=== PATIENT | female | born 1940 | race Caucasian/White ===

== ENCOUNTER 2017-05-05 09:40 | Outpatient (CLI) | payer OTHER ==
[~2017-05-05 09:40] MED LIST: ASA81 MG; CATAFLAM50 MG PO; IBUPROFEN800 MG; LYRICA50 MG; NORVASC5 MG; ORPH100T PO; TRAZODONE HCL50 MG; VASOTEC10 MG
== END 2017-05-05 09:42 | disposition home or self-care (01) ==
LOC: NUCLEAR 09:40
DX: I10 Essential (primary) hypertension (principal); J44.9 Chronic obstructive pulmonary disease, unspecified

== ENCOUNTER → 2017-05-21 | Outpatient (CLI) | payer OTHER | END | disposition home or self-care (01) | LOC: NUCLEAR 05-13 09:00 | DX: I87.2 Venous insufficiency (chronic) (peripheral) (principal) ==

== ENCOUNTER 2017-07-29 09:21 | Outpatient (CLI) | payer OTHER | END 2017-07-29 09:25 | disposition home or self-care (01) | LOC: NUCLEAR 09:21 | DX: R07.89 Other chest pain (principal); I50.9 Heart failure, unspecified; I25.10 Atherosclerotic heart disease of native coronary artery without angina pectoris; I20.9 Angina pectoris, unspecified ==

== ENCOUNTER 2018-06-15 09:45 | Outpatient (CLI) | payer OTHER | END 2018-06-15 10:34 | disposition home or self-care (01) | LOC: MAMO-SONO 09:45 | DX: Z12.31 Encounter for screening mammogram for malignant neoplasm of breast (principal); Z85.3 Personal history of malignant neoplasm of breast ==

== ENCOUNTER 2019-02-14 11:30 | Outpatient (CLI) | payer OTHER | END 2019-02-14 12:00 | disposition home or self-care (01) | LOC: NUCLEAR 11:30 | DX: I82.403 Acute embolism and thrombosis of unspecified deep veins of lower extremity, bilateral (principal) ==

== ENCOUNTER 2019-02-16 14:49 | Outpatient (CLI) | payer OTHER | END 2019-02-16 14:56 | disposition home or self-care (01) | LOC: NUCLEAR 14:49 | DX: I70.213 Atherosclerosis of native arteries of extremities with intermittent claudication, bilateral legs (principal) ==

== ENCOUNTER 2019-02-22 03:04 | Inpatient (IN) | payer OTHER ==
[~2019-02-22] VITALS: Ht 162.6 cm; Wt 111.1 kg
[2019-02-22] MEDS ORDERED: SYNTHROID50 MCG (03:23)
[2019-02-22] MEDS ORDERED: COZAAR100 MG (03:23)
[2019-02-22] MEDS ORDERED: LASIX40 MG (03:24)
[2019-02-22] MEDS ORDERED: GRALISE600 MG (03:24)
== END 2019-02-26 09:15 | disposition home or self-care (01) | DRG 308 ==
LOC: ER 03:04 → SEC-K 06:30 → SURG 06:30
PROVIDERS: ADMIT Internal Medicine Cardiovascular Disease
PROC: B246ZZZ Ultrasonography of Right and Left Heart (ICD-10-PCS; principal; 2019-02-22)
PROC: 4A12X4Z Monitoring of Cardiac Electrical Activity, External Approach (ICD-10-PCS; 2019-02-22)
PROC: 4A033R1 Measurement of Arterial Saturation, Peripheral, Percutaneous Approach (ICD-10-PCS; 2019-02-22)
PROC: 3E0F7GC Introduction of Other Therapeutic Substance into Respiratory Tract, Via Natural or Artificial Opening (ICD-10-PCS; 2019-02-22)
PROC: 0T9B70Z Drainage of Bladder with Drainage Device, Via Natural or Artificial Opening (ICD-10-PCS; 2019-02-22)
DX: I48.0 Paroxysmal atrial fibrillation (principal); I50.43 Acute on chronic combined systolic (congestive) and diastolic (congestive) heart failure; I73.89 Other specified peripheral vascular diseases; I11.0 Hypertensive heart disease with heart failure; I08.1 Rheumatic disorders of both mitral and tricuspid valves; N39.8 Other specified disorders of urinary system; Z79.01 Long term (current) use of anticoagulants